=== PATIENT | female | born 1990 ===

== ENCOUNTER 2022-03-30 22:49 | Emergency (ER) | payer OTHER ==
[~2022-03-30] VITALS: Ht 162.6 cm; Wt 72.1 kg
== END 2022-03-31 04:04 | disposition designated cancer center or children's hospital (05) ==
LOC: ER 22:49
DX: S61.224A Laceration with foreign body of right ring finger without damage to nail, initial encounter (principal); W18.02XA Striking against glass with subsequent fall, initial encounter; Y93.G1 Activity, food preparation and clean up; Y92.9 Unspecified place or not applicable; Z91.013 Allergy to seafood; Z20.822 Contact with and (suspected) exposure to COVID-19